=== PATIENT | male | born 1950 | race Caucasian/White ===

== ENCOUNTER 2017-09-01 09:15 | Outpatient (CLI) | payer MEDICARE, OTHER ==
[~2017-09-01] VITALS: Ht 175.3 cm; Wt 108.9 kg
[~2017-09-01 09:15] MED LIST: ACETAMINOPHEN-1 EAC1 PO; ANASPAZ0.125 MG PO; ASPIRIN EC325 M1; ASPIRIN EC81 M1 PO; ATORVASTATIN CA20 MG PO; B-12500 MCG PO; CARVEDILOL3.125 MG PO; CRESTOR10 MG PO; EFFIENT10 MG PO; FISH OIL + VIT1 EACH PO; FISH OIL 1,0001 EAC7 PO; FLAXSEED OIL1000 MG PO; IBUPROFEN 800800 MG PO; IMDUR 30 MG TAB30 M1 PO; IMDUR 60 MG TAB60 M1 PO; ISOSORBIDE MONO30 M1 PO; LISINOPRIL2.5 MG PO; LISINOPRIL5 MG PO; NEXIUM 40 MG CA40 M1 PO; NITROGLYCERIN0.4 MG SL; NORVASC2.5 MG PO; PRILOSEC 20 MG20 MG PO; ROBAXIN500 MG PO; VITAMIN D-32000 UNIT PO
[2017-09-01 10:01] VITALS: BP 109/76
[2017-09-01 10:06] LABS: HEMATOCRIT 42.7 % (42.0-52.0); HEMOGLOBIN 14.4 gm/dL (14.0-18.0); MCH 30.3 pg (26.0-34.0); MCHC 33.8 g/dL (28.0-37.0); MCV 89.7 fL (80.0-100.0); MPV 8.1 fl. (7.2-11.1); RBC 4.75 mil/uL (4.50-6.00); RDW-CV 13.5 % (10.5-14.5); WBC 5.4 thou/uL (4.0-11.0)
[2017-09-01 10:10] LABS: ANION GAP 8 mmol/L (7-16); BUN 16 mg/dL (7-18); CALCIUM 8.5 mg/dL (8.5-10.1); CHLORIDE 104 mmol/L (98-107); CO2 29 mmol/L (21-32); CREATININE 1.1 mg/dL (0.6-1.3); GLUCOSE 102 mg/dL (70-99); POTASSIUM 4.2 mmol/L (3.5-5.1); SODIUM 141 mmol/L (136-145)
[2017-09-01 10:11] LABS: APTT 30.2 Seconds (25.0-31.3); INR 1.1
[2017-09-01 10:15] LABS: ALBUMIN 3.5 g/dL (3.4-5.0); ALKALINE PHOSPHATASE 73 U/L (46-116); CHOLESTEROL 125 mg/dL (<200); HDL CHOLESTEROL 50 mg/dL (>40); LDL CHOLESTEROL 65 mg/dL (<100); SGOT 32 U/L (15-37); SGPT 29 U/L (30-65); TC:HDL 2.5 Ratio (Not establshd); TOTAL BILIRUBIN 0.8 mg/dL (<0.1-1.0); TRIGLYCERIDE 50 mg/dL (<150); VLDL 10 mg/dL (<40)
[2017-09-01 10:17] LABS: SERUM ASSESSMENT Clear
[2017-09-01 12:30] VITALS: BP 100/64
--- NOTE | 2017-09-01 13:42 | EKG ---
[place] [address] ELECTROCARDIOGRAM REPORT Name: WANDER ANDREW Room: [address]#: [id number] Admission: 09/01/17 Attend Phys: Bogdan Veloz MD, Discharge: Date of : 54 Report #: [id number] THIS REPORT FOR: //name// [facility] Test Date: 2017-09-01 Test Time: 09:32:37 Pat Name: WANDER ANDREW Department: Room: Gender: Quantitative Analyst: : 1950 Requested By: Bogdan Veloz Order Number: [id number] Reading MD: Kyler Krishna Measurements Intervals Apex Rate: 58 P: 3 DC: 228 QRS: -21 QRSD: 95 T: 74 QT: 432 QTc: 425 Interpretive Statements Sinus rhythm Prolonged DC interval Borderline left axis deviation Probable lateral infarct, old Baseline wander in lead(s) V4,V5 Compared to ECG 05/30/2015 01:49:56 No significant changes Electronically Signed On 09-01-2017 13:42:13 CDT by Kyler Krishna [email or web address] <ELECTRONICALLY SIGNED> By: Kyler Krishna MD, FACC 09/01/17 1342 0932 0932 Kyler Krishna MD, [facility] /EPI
[2017-09-01 15:24] VITALS: BP 104/69
[2017-09-01 15:59] VITALS: BP 109/71
[2017-09-01] MEDS ORDERED: IMDUR 30 MG TAB30 M1 PO (16:54)
--- NOTE | 2017-09-03 12:38 | NUR ---
Spoke with patient by phone, states he is doing well. Right groin cath puncture site is healing well. Has all his medications. No questions or concerns.
--- NOTE | 2017-09-04 10:44 | CARD ---
[address] [address] CARDIAC CATH REPORT Name: WANDER ANDREW Room: [address]Deshaun#: [id number] Admission: 09/01/17 Attend Phys: Bogdan Veloz MD, Discharge: Date of : 54 Report #: [id number] THIS REPORT FOR: //name// APPROVED REPORT Study performed: 09/01/2017 10:32:37 Patient Details Patient Status: In-Patient Room #: The patient is a 67 year-old male Event Personnel Bogdan Veloz [employer]orer [employer], Lily Blas RN Online Marketing Strategist, Wander Bassett ARRJames (R) Monitor, Kaylie Hamilton Scrub Procedures Performed Art Access - R femoral artery* Indication Positive stress test Risk Factors Hypercholesterolemia, Hypertension Previous Procedures/Diagnoses Previous PCI Procedure Narrative The patient was brought electively to the Cardiac Catheterization Laboratory and was prepped and draped in a sterile manner. The right femoral was infiltrated with subcutaneous anesthesia. A Mcbee 6 FR sheath was inserted into the right femoral coronary artery. Coronary angiography was performed using coronary diagnostic catheters. The right coronary system was accessed and visualized with a 6fr JR4 catheter. The left coronary system was accessed and visualized with a 6fr JL4 catheter. The left ventricle was accessed and visualized with a 6fr pigtail catheter. Left ventricular/Aortic Valve gradient assessed via catheter pullback. Left ventriculogram was performed in FIGUEROA projection. Pre-demployment femoral angiogram was performed . Closure device was deployed with a Fr MynxGrip 6/7F. The patient tolerated the procedure well and there were no complications associated with the procedure. There was no hematoma[place] [address] CARDIAC CATH REPORT Name: WANDER ANDREW [address] [id number] Admission: 09/01/17 Attend Phys: Bogdan Veloz MD, Discharge: Date of : 54 Report #: [id number] Sedation start time: 11:12 Case end Time: 11:35 Fentanyl 25 mcg Versed 1 mg Fluoro Time: 2.7 minutes Dose: DAP 60516 cGycm2 726 mGy Contrast Type and Amount: Visipaque 90 ml Coronary Angiography The patient's coronary anatomy is right dominant. Diagnostic Cath Left Main 30% distal narrowing LAD Widely patent proximal and mid vessel stents with 40% distal LAD narrowing; there was vasospasm noted in the mid LAD which remitted after administration of intracoronary nitroglycerin Diagonal 1 100% mid vessel occlusion with left to left collaterals filling the distal diagonal Circumflex 40% proximal narrowing with 40% narrowing of the proximal portion of the first marginal branch Right Coronary 4% proximal and mid vessel narrowing Left Ventriculography The left ventricle is normal in size with contractility. The left ventricular ejection fraction is estimated to be 50%. Left ventricular wall motion abnormalities are present. There is no mitral insufficiency. There is mild anterolateral hypokinesis Hemodynamics The aortic pressure is 139/51 mmHg with a mean of 79 mmHg. The left ventricular pressure is 109/2 mmHg with a mean of mmHg. The left ventricular end diastolic pressure is 11 mmHg. Pullback from the left ventricle to the aorta revealed no gradient across the aortic valve. Conclusion #1 modest atherosclerotic coronary artery disease characterized by the following: A 30% distal left main coronary artery narrowing B widely patent proximal and mid LAD stents with moderate mid LAD vasospasm remitting after administration [place] [address] CARDIAC CATH REPORT Name: WANDER ANDREW Room: [address]#: [id number] Admission: 09/01/17 Attend Phys: Bogdan Veloz MD, Discharge: Date of : 54 Report #: [id number] C total occlusion of the midportion of the prominent first diagonal with left to left collaterals to the distal diagonal D 40% proximal circumflex narrowing with 40% narrowing of the proximal portion of the first marginal branch E dominant right coronary artery with 40% proximal and mid vessel narrowing Recommendations Cardiac Risk Reduction Program Diagnostic Cath Approved by: Bogdan Veloz MD Date/Time: 09/04/17 at 1043 hrs. <ELECTRONICALLY SIGNED> By: Bogdan Veloz MD, [facility] 09/04/17 1044 1044 [id number] Veloz MD, [facility] /INF
--- NOTE | 2017-09-15 16:10 | H ---
[place] [address] HISTORY AND PHYSICAL Name: WANDER ANDREW [id number] Admission: 09/01/17 Attend Phys: Bogdan Veloz MD, Discharge: 09/01/17 Date of : 54 Report #: [id number] THIS REPORT FOR: //name// CC: Bogdan Cartagena Ortiz DATE OF SERVICE: 09/01/2017 The patient admitted for cath on 09/01/2017. HISTORY OF PRESENT ILLNESS: The patient is a very pleasant 67-year-old male with known coronary artery disease status post prior stenting of the proximal and mid LAD. Recently, he has noted some dyspnea and chest discomfort compatible with angina on exertion. He describes it as somewhat similar to his prior ischemic pain without protracted discomfort. He is on a confluence of cardiac medicines including aspirin, atorvastatin, carvedilol and Imdur as well as lisinopril and sublingual nitroglycerin, but he also takes cyanocobalamin and Nexium. PHYSICAL EXAMINATION: GENERAL: Demonstrates a moderately overweight, middle-aged male. VITAL SIGNS: Blood pressure 120/75, weight 115 kilos. CHEST: Clear. CARDIOVASCULAR: Reveals normal first and second heart sounds. ABDOMEN: Moderately obese. EXTREMITIES: Satisfactorily perfused. IMPRESSION: 1. Coronary artery disease, status post prior stenting with recurrent symptoms compatible with angina. 2. Hypertension. 3. Exogenous obesity. 4. Mixed hyperlipoproteinemia. RECOMMENDATIONS: Given the aforementioned clinical scenario and review of this case by Dr. Krishna, I would recommend proceeding with cardiac catheterization to be undertaken on 09/01/2017. <ELECTRONICALLY SIGNED> By: Bogdan Veloz MD, FACC 09/15/17 1610 1353 [id number] Veloz MD, FACC /nt
== END 2017-09-01 17:23 | disposition home or self-care (01) ==
LOC: M.CL 09:15 → M.TBA-CV 11:49 → M.CL 17:23
PROVIDERS: Internal Medicine
DX: I25.10 Atherosclerotic heart disease of native coronary artery without angina pectoris (principal); I10 Essential (primary) hypertension; E78.5 Hyperlipidemia, unspecified; Z90.49 Acquired absence of other specified parts of digestive tract; Z98.890 Other specified postprocedural states; Z98.49 Cataract extraction status, unspecified eye; Z96.1 Presence of intraocular lens; Z79.899 Other long term (current) drug therapy; Z79.82 Long term (current) use of aspirin; Z79.01 Long term (current) use of anticoagulants

== ENCOUNTER → 2017-09-29 | Outpatient (CLI) | payer MEDICARE, OTHER | LOC: M.RAD 09:14 | DX: M70.22 Olecranon bursitis, left elbow (principal); M77.02 Medial epicondylitis, left elbow; I10 Essential (primary) hypertension; E78.5 Hyperlipidemia, unspecified; Z95.5 Presence of coronary angioplasty implant and graft ==

== ENCOUNTER → 2018-08-16 | Outpatient (CLI) | payer MEDICARE, OTHER | LOC: M.ULTRA 07:51 | DX: Z13.6 Encounter for screening for cardiovascular disorders (principal); I10 Essential (primary) hypertension; E78.2 Mixed hyperlipidemia; I25.10 Atherosclerotic heart disease of native coronary artery without angina pectoris; Z90.49 Acquired absence of other specified parts of digestive tract ==